=== PATIENT | female | born 1935 | race Caucasian/White ===

== ENCOUNTER 2016-06-26 11:20 | Inpatient (IN) | payer OTHER, MEDICARE ==
[~2016-06-26] VITALS: Ht 160 cm; Wt 65.4 kg
[~2016-06-26 11:20] MED LIST: ADVAIR 250/501 DISK IH; ADVIL200 MG PO; ALPRAZOLAM0.25 M2 PO; AMLODIPINE BESYL5 MG PO; ANORO ELLIPTA1 EACH IH; CALCIUM + D3 E1 EACH PO; CALCIUM 600 +1 EAC2 PO; CALCIUM 600 +1 EACH PO; CLARITIN,ALAVAR10 MG PO; Coumadin,Jantoven PO; DAILY VALUE1 EACH PO; DOXYCYCLINE HY100 MG PO; FOLIC ACID1 MG PO; FOSAMAX70 MG PO; HYDROCODON-ACE1 EAC7 PO; IBUPROFEN400 MG PO; IRON325 M1 PO; IRON325 MG PO; LO-DOSE ASPIRIN81 M1 PO; LORAZEPAM0.5 MG PO; MUCINEX600 MG PO; OCEAN NASAL 0.645 ML BOTH NARES; OMEPRAZOLE20 MG PO; OMNICEF300 MG PO; PLAVIX75 MG PO; PRAVACHOL80 MG PO; PRAVASTATIN SOD40 MG PO; PREDNISONE10 MG PO; PREDNISONE20 MG PO; PRESERVISION A1 EAC1 PO; PRESERVISION A1 EAC2 PO; PROAIR HFA8.5 GM IH; PROVENTIL2.5 MG/3 M IH; Pepcid PO; RELAFEN500 M1 PO; Senokot S,Pericolace PO; TESSALON PERLE100 MG PO; TOPROL XL25 MG PO; TUDORZA PRESS400 MCG IH; TYLENOL EXTRA500 MG PO; VENTOLIN HFA18 GM IH; VITAMIN B-12250 MCG PO; VITAMIN B-12500 MC5 SL; VITAMIN B12-FO1 EACH PO; VITAMIN D31000 UNI2 PO; Vicodin,Norco 5/325 PO; XOPENEX0.31 MG/3 IH; XOPENEX0.63 MG/3 IH
[2016-06-26 12:14] LABS: EOSINOPHIL (%) 0.8 % (0-5); EOSINOPHIL COUNT 0.1 K/uL (0-0.3); HEMATOCRIT 40.8 % (36.0-46.0); IMMATURE GRANULOCYTE (%) 0.3 % (0.0-0.7); IMMATURE GRANULOCYTE COUNT 0.3 K/uL; LYMPHOCYTE COUNT 0.3 K/uL (1.0-2.8); MCHC 32.1 G/DL (30.0-36.0); MCV 99.8 FL (83-99); MEAN PLAT.VOLUME 10.8 uM^3 (9.5-12.4); MONOCYTE (%) 6.7 % (3-12); MONOCYTE COUNT 0.7 K/uL (0-0.8); NEUTROPHIL (%) 89.2 % (45-76); NEUTROPHIL COUNT 9.5 K/uL (1.8-6.4); PLATELET COUNT 170 K/uL (156-360); RBC DIS.WIDTH-CV 12.5 % (11.8-14.6); RBC DIS.WIDTH-SD 44.4 % (39-53); RED BLOOD COUNT 4.09 M/uL (3.80-5.20); WHITE BLOOD COUNT 10.7 K/uL (4.1-10.2)
[2016-06-26 12:25] LABS: CHLORIDE 101 mEq/L (99-109); SODIUM 137 mEq/L (136-147)
[2016-06-26 12:27] LABS: GLUCOSE 182 mg/dL (70-99)
[2016-06-26 12:29] LABS: ANION GAP 9 MEQ/L (2-14); TOTAL BILIRUBIN 0.3 mg/dL (0.0-1.0)
[2016-06-26 12:31] LABS: ALKALINE PHOSPHATASE 60 IU/L (3-129); GFR ESTIMATE (CALCULATED) > 59 mL/min/
[2016-06-26 12:32] LABS: UREA NITROGEN (BUN) 11 mg/dL (9-23)
[2016-06-26 13:40] LABS: ADD MIUA? YES; BILIRUBIN NEGATIVE; BLOOD NEGATIVE; COLOR YELLOW ((YELLOW)); GLUCOSE (STRIP) NEGATIVE; KETONES NEGATIVE; LEUKOCYTES LARGE; NITRITE NEGATIVE; PROTEIN (STRIP) NEGATIVE; SPECIFIC GRAVITY 1.011 (1.000-1.030); UROBILINOGEN 0.2 MG/DL (0.2-1.0)
[2016-06-26 13:50] LABS: BACTERIA 1+ /HPF; EPITHELIAL CELLS RARE /HPF; MUCUS TRACE /LPF; RED BLOOD CELLS 0-5 /HPF (0-5); UCUL ADDED? NO
[2016-06-26] MEDS ORDERED: LITE COAT ASPI325 M1 PO (16:16)
[2016-06-26] MEDS ORDERED: FERGON324 MG PO (16:22)
[2016-06-26] MEDS ORDERED: MUCINEX600 MG PO (16:23)
[2016-06-26] MEDS ORDERED: PROBIOTIC1 EAC2 PO (16:25)
[2016-06-26 18:31] VITALS: BP 152/66
[2016-06-26 23:00] VITALS: BP 146/71
[2016-06-27 04:06] LABS: METH RESISTANT S AUREUS PCR NEGATIVE (NEGATIVE)
[2016-06-27 04:07] LABS: PROBE CHECK PASS; SPECIMEN PROCESSING CONTROL PASS
[2016-06-27 08:42] LABS: ANION GAP 9 MEQ/L (2-14); CHLORIDE 102 MEQ/L (99-109); GFR ESTIMATE (CALCULATED) > 59 mL/min/; GLUCOSE 152 mg/dL (70-99); POTASSIUM 4.3 MEQ/L (3.7-5.4); SAMPLE HEMOLYSIS CHECK 0; SAMPLE ICTERIC CHECK 0; SAMPLE LIPEMIA CHECK 0; SODIUM 141 MEQ/L (136-147); UREA NITROGEN (BUN) 8 mg/dL (9-23)
[2016-06-27 08:52] LABS: HEMATOCRIT 38.8 % (36.0-46.0); MCH 32.2 PG (29.0-34.0); MCV 100.8 FL (83-99); MEAN PLAT.VOLUME 10.9 uM^3 (9.5-12.4); PLATELET COUNT 177 K/uL (156-360); RBC DIS.WIDTH-CV 12.9 % (11.8-14.6); RBC DIS.WIDTH-SD 47.5 % (39-53); RED BLOOD COUNT 3.85 M/uL (3.80-5.20)
[2016-06-27 08:55] LABS: WHITE BLOOD COUNT 6.2 K/uL (4.1-10.2)
[2016-06-27 09:03] VITALS: BP 163/85
[2016-06-27 10:49] VITALS: BP 180/80
[2016-06-27 12:21] LABS: TROP-I INTERPRETATION NEGATIVE; TROPONIN-I < 0.01 ng/mL (0.0-0.30)
[2016-06-27 12:45] VITALS: BP 165/68
[2016-06-27 12:53] VITALS: BP 180/80
[2016-06-27 17:52] VITALS: BP 178/81
[2016-06-28 00:50] VITALS: BP 160/79
[2016-06-28 08:36] VITALS: BP 173/72
[2016-06-28 08:40] VITALS: BP 173/72
[2016-06-28 12:56] VITALS: BP 158/69
[2016-06-28 16:12] VITALS: BP 152/72
[2016-06-28 16:40] LABS: ANION GAP 7 MEQ/L (2-14); CHLORIDE 101 MEQ/L (99-109); GFR ESTIMATE (CALCULATED) > 59 mL/min/; GLUCOSE 133 mg/dL (70-99); POTASSIUM 4.7 MEQ/L (3.7-5.4); SAMPLE HEMOLYSIS CHECK 0; SAMPLE ICTERIC CHECK 0; SAMPLE LIPEMIA CHECK 0; SODIUM 139 MEQ/L (136-147); UREA NITROGEN (BUN) 10 mg/dL (9-23)
[2016-06-28 16:42] LABS: TROP-I INTERPRETATION NEGATIVE; TROPONIN-I 0.02 ng/mL (0.0-0.30)
[2016-06-28 19:50] VITALS: BP 178/75
[2016-06-29] VITALS (7 sets, daily range): BP systolic 142–180; BP diastolic 73–97
[2016-06-29 11:50] LABS: INFLUENZA A VIRAL ANTIGEN NEGATIVE; INFLUENZA B VIRAL ANTIGEN POSITIVE
[2016-06-29] MEDS ORDERED: CEFTIN500 MG PO (12:58)
[2016-06-29] MEDS ORDERED: PREDNISONE10 MG PO (12:59)
[2016-06-30 08:00] VITALS: BP 169/85
[2016-06-30] MEDS ORDERED: OSELTAMIVIR PHO30 MG PO (11:01)
== END 2016-06-30 13:15 | disposition home or self-care (01) | DRG 190 ==
LOC: EME 11:20 → EDOF 15:18 → 5EAST 15:18
PROVIDERS: Hospitalist; Internal Medicine; Nurse Practitioner Family
DX: J44.1 Chronic obstructive pulmonary disease with (acute) exacerbation (principal); J96.20 Acute and chronic respiratory failure, unspecified whether with hypoxia or hypercapnia; J11.1 Influenza due to unidentified influenza virus with other respiratory manifestations; Z99.81 Dependence on supplemental oxygen; I10 Essential (primary) hypertension; I25.10 Atherosclerotic heart disease of native coronary artery without angina pectoris; G25.81 Restless legs syndrome; L93.0 Discoid lupus erythematosus; H35.30 Unspecified macular degeneration; Z95.5 Presence of coronary angioplasty implant and graft; Z85.118 Personal history of other malignant neoplasm of bronchus and lung; Z79.01 Long term (current) use of anticoagulants
CPT/HCPCS: 71010; 80048; 80053; 81003; 83605; 84484; 85025; 85027; 87040; 87070; 87077; 87186; 87205; 87502; 87641; 93005; 94640; 94640 76; 94668; 94760; 94799; 99202; 99281; 99285; J0696; J1650; J2543; J2930; J7030; J7050; J7512

== ENCOUNTER 2016-11-24 12:05 | Emergency (ER) | payer OTHER, MEDICARE ==
[~2016-11-24] VITALS: Ht 160 cm; Wt 62.2 kg
[~2016-11-24 12:05] MED LIST changes: +CEFTIN500 MG PO; +FERGON324 MG PO; +LITE COAT ASPI325 M1 PO; +OSELTAMIVIR PHO30 MG PO; +PROBIOTIC1 EAC2 PO
[2016-11-24 13:32] LABS: HEMATOCRIT 40.3 % (36.0-46.0); MCH 31.5 PG (29.0-34.0); MCHC 32.5 G/DL (30.0-36.0); MCV 96.9 FL (83-99); MEAN PLAT.VOLUME 10.7 uM^3 (9.5-12.4); PLATELET COUNT 166 K/uL (156-360); RBC DIS.WIDTH-CV 11.6 % (11.8-14.6); RBC DIS.WIDTH-SD 41.2 % (39-53); RED BLOOD COUNT 4.16 M/uL (3.80-5.20); WHITE BLOOD COUNT 6.3 K/uL (4.1-10.2)
[2016-11-24 13:40] LABS: CHLORIDE 100 mEq/L (99-109); POTASSIUM 4.9 mEq/L (3.7-5.4); SODIUM 139 mEq/L (136-147)
[2016-11-24 13:42] LABS: GLUCOSE 99 mg/dL (70-99)
[2016-11-24 13:43] LABS: ANION GAP 8 MEQ/L (2-14)
[2016-11-24 13:46] LABS: GFR ESTIMATE (CALCULATED) > 59 mL/min/
[2016-11-24 13:47] LABS: UREA NITROGEN (BUN) 8 mg/dL (9-23)
[2016-11-24 14:47] LABS: ADD MIUA? YES; BILIRUBIN NEGATIVE; BLOOD NEGATIVE; COLOR YELLOW ((YELLOW)); GLUCOSE (STRIP) NEGATIVE; KETONES NEGATIVE; LEUKOCYTES MODERATE; NITRITE NEGATIVE; PROTEIN (STRIP) NEGATIVE; UROBILINOGEN 0.2 MG/DL (0.2-1.0)
[2016-11-24 15:19] LABS: BACTERIA RARE /HPF; EPITHELIAL CELLS RARE /HPF; HYALINE CASTS 0-5 /LPF; MUCUS NONE SEEN /LPF; RED BLOOD CELLS 0-5 /HPF (0-5); UCUL ADDED? NO; WHITE BLOOD CELLS 30-40 /HPF (0-5)
[2016-11-24] MEDS ORDERED: NORCO 5/3251 TABLET PO (15:56)
[2016-11-24 16:00] VITALS: BP 142/77
== END 2016-11-24 16:11 | disposition home or self-care (01) ==
LOC: EME 12:05
PROVIDERS: Physician Assistant
DX: M54.41 Lumbago with sciatica, right side (principal); I10 Essential (primary) hypertension; E78.5 Hyperlipidemia, unspecified; J44.9 Chronic obstructive pulmonary disease, unspecified; Z85.118 Personal history of other malignant neoplasm of bronchus and lung; Z79.82 Long term (current) use of aspirin; Z87.891 Personal history of nicotine dependence
CPT/HCPCS: 72131; 80048; 81003; 85027; 99281; 99285

== ENCOUNTER 2017-07-16 20:34 | Emergency (ER) | payer OTHER, MEDICARE ==
[~2017-07-16] VITALS: Ht 165.1 cm; Wt 55.5 kg
[~2017-07-16 20:34] MED LIST changes: +NORCO 5/3251 TABLET PO
[2017-07-16 21:04] LABS: HEMATOCRIT 41.2 % (36.0-46.0); HEMOGLOBIN 13.7 G/DL (11.9-15.5); MCH 32.9 PG (29.0-34.0); MCHC 33.3 G/DL (30.0-36.0); PLATELET COUNT 181 K/uL (156-360); RBC DIS.WIDTH-CV 13.7 % (11.8-14.6); RBC DIS.WIDTH-SD 49.3 % (39-53); RED BLOOD COUNT 4.16 M/uL (3.80-5.20); WHITE BLOOD COUNT 8.2 K/uL (4.1-10.2)
[2017-07-16 21:18] LABS: CHLORIDE 104 mEq/L (99-109); POTASSIUM 3.9 mEq/L (3.7-5.4); SODIUM 140 mEq/L (136-147)
[2017-07-16 21:20] LABS: GLUCOSE 120 mg/dL (70-99)
[2017-07-16 21:23] LABS: CREATININE 0.8 mg/dL (0.6-1.3); GFR ESTIMATE (CALCULATED) > 59 mL/min/
[2017-07-16 21:24] LABS: UREA NITROGEN (BUN) 12 mg/dL (9-23)
[2017-07-16 21:32] LABS: TROP-I INTERPRETATION NEGATIVE; TROPONIN-I < 0.01 ng/mL (0.0-0.30)
[2017-07-16] MEDS ORDERED: PREDNISONE10 MG PO (22:25)
[2017-07-16] MEDS ORDERED: PREDNISONE20 MG PO (22:49)
[2017-07-16 23:20] VITALS: BP 143/70
== END 2017-07-16 23:22 | disposition home or self-care (01) ==
LOC: EME → EDBD 20:34 → EME 20:34
DX: J44.1 Chronic obstructive pulmonary disease with (acute) exacerbation (principal); R09.02 Hypoxemia; I10 Essential (primary) hypertension; E78.5 Hyperlipidemia, unspecified; K21.9 Gastro-esophageal reflux disease without esophagitis; H35.30 Unspecified macular degeneration; Z99.81 Dependence on supplemental oxygen; Z87.891 Personal history of nicotine dependence; Z85.118 Personal history of other malignant neoplasm of bronchus and lung; Z79.82 Long term (current) use of aspirin; Z88.2 Allergy status to sulfonamides; Z88.1 Allergy status to other antibiotic agents; Z88.8 Allergy status to other drugs, medicaments and biological substances
CPT/HCPCS: 71045; 80048; 84484; 85027; 93005; 99281; 99284

== ENCOUNTER 2017-08-20 12:30 | Inpatient (IN) | payer OTHER, MEDICARE ==
[~2017-08-20] VITALS: Ht 160 cm; Wt 63.4 kg
[2017-08-20 13:03] LABS: BASOPHIL (%) 0.1 % (0-1); EOSINOPHIL (%) 3.5 % (0-5); EOSINOPHIL COUNT 0.3 K/uL (0-0.3); HEMATOCRIT 41.5 % (36.0-46.0); HEMOGLOBIN 13.6 G/DL (11.9-15.5); IMMATURE GRANULOCYTE (%) 0.4 % (0.0-0.7); LYMPHOCYTE (%) 11.3 % (15-42); LYMPHOCYTE COUNT 0.9 K/uL (1.0-2.8); MCH 32.7 PG (29.0-34.0); MCHC 32.8 G/DL (30.0-36.0); MCV 99.8 FL (83-99); MONOCYTE (%) 8.9 % (3-12); MONOCYTE COUNT 0.7 K/uL (0-0.8); NEUTROPHIL (%) 75.8 % (45-76); NEUTROPHIL COUNT 5.8 K/uL (1.8-6.4); PLATELET COUNT 177 K/uL (156-360); RBC DIS.WIDTH-CV 13.1 % (11.8-14.6); RBC DIS.WIDTH-SD 47.5 % (39-53); RED BLOOD COUNT 4.16 M/uL (3.80-5.20); WHITE BLOOD COUNT 7.6 K/uL (4.1-10.2)
[2017-08-20 13:22] LABS: CHLORIDE 100 mEq/L (99-109); POTASSIUM 4.2 mEq/L (3.7-5.4); SODIUM 137 mEq/L (136-147)
[2017-08-20 13:23] LABS: GLUCOSE 81 mg/dL (70-99)
[2017-08-20 13:27] LABS: CREATININE 0.8 mg/dL (0.6-1.3); GFR ESTIMATE (CALCULATED) > 59 mL/min/
[2017-08-20 13:28] LABS: UREA NITROGEN (BUN) 10 mg/dL (9-23)
[2017-08-20 13:30] LABS: TROP-I INTERPRETATION NEGATIVE; TROPONIN-I < 0.01 ng/mL (0.0-0.30)
[2017-08-20] MEDS ORDERED: FERROUS GLUCON324 MG PO (14:39)
[2017-08-20] MEDS ORDERED: ADVIL,NUPRIN,M200 MG PO (14:40)
[2017-08-20] MEDS ORDERED: FLUTICASONE PRO16 GM BOTH NARES (14:40)
[2017-08-20] MEDS ORDERED: VITAMIN D31000 UNIT PO (14:41)
[2017-08-20] MEDS ORDERED: CLARITIN,ALAVAR10 MG PO (14:41)
[2017-08-20] MEDS ORDERED: REFRESH TEARS15 ML BOTH EYES (14:41)
[2017-08-20 21:04] VITALS: BP 125/89
[2017-08-20 23:50] VITALS: BP 138/66
[2017-08-21 03:30] VITALS: BP 139/70
[2017-08-21 06:09] LABS: HEMATOCRIT 39.3 % (36.0-46.0); HEMOGLOBIN 12.7 G/DL (11.9-15.5); MCH 31.6 PG (29.0-34.0); MCHC 32.3 G/DL (30.0-36.0); MCV 97.8 FL (83-99); PLATELET COUNT 174 K/uL (156-360); RBC DIS.WIDTH-CV 12.7 % (11.8-14.6); RBC DIS.WIDTH-SD 44.9 % (39-53); RED BLOOD COUNT 4.02 M/uL (3.80-5.20); WHITE BLOOD COUNT 6.4 K/uL (4.1-10.2)
[2017-08-21 06:38] LABS: ALKALINE PHOSPHATASE 51 IU/L (3-129); ALT (GPT) 10 IU/L (3-49); AST (GOT) 14 IU/L (2-34); CHLORIDE 99 MEQ/L (99-109); CREATININE 0.7 MG/DL (0.6-1.3); DIRECT BILIRUBIN 0.1 mg/dL (0.0-0.3); GFR ESTIMATE (CALCULATED) > 59 mL/min/; POTASSIUM 4.3 MEQ/L (3.7-5.4); SODIUM 139 MEQ/L (136-147); TOTAL BILIRUBIN 0.4 MG/DL (0.0-1.0); TOTAL PROTEIN 6.1 G/DL (6.4-8.3); UREA NITROGEN (BUN) 11 mg/dL (9-23)
[2017-08-21 06:46] LABS: GLUCOSE 163 mg/dL (70-99)
[2017-08-21 07:33] VITALS: BP 152/81
[2017-08-21 11:16] VITALS: BP 141/70
[2017-08-21 16:25] VITALS: BP 143/71
[2017-08-22 00:10] VITALS: BP 131/72
[2017-08-22 06:30] LABS: BASOPHIL (%) 0.1 % (0-1); EOSINOPHIL (%) 0.1 % (0-5); HEMATOCRIT 39.3 % (36.0-46.0); HEMOGLOBIN 12.8 G/DL (11.9-15.5); IMMATURE GRANULOCYTE (%) 0.8 % (0.0-0.7); LYMPHOCYTE (%) 2.7 % (15-42); LYMPHOCYTE COUNT 0.4 K/uL (1.0-2.8); MCH 32.2 PG (29.0-34.0); MCHC 32.6 G/DL (30.0-36.0); MCV 98.7 FL (83-99); MONOCYTE (%) 2.3 % (3-12); MONOCYTE COUNT 0.4 K/uL (0-0.8); NEUTROPHIL COUNT 14.5 K/uL (1.8-6.4); PLATELET COUNT 186 K/uL (156-360); RED BLOOD COUNT 3.98 M/uL (3.80-5.20); WHITE BLOOD COUNT 15.4 K/uL (4.1-10.2)
[2017-08-22 07:01] LABS: CHLORIDE 99 MEQ/L (99-109); CREATININE 0.6 MG/DL (0.6-1.3); GFR ESTIMATE (CALCULATED) > 59 mL/min/; GLUCOSE 146 mg/dL (70-99); SODIUM 140 MEQ/L (136-147); UREA NITROGEN (BUN) 13 mg/dL (9-23)
[2017-08-22 07:25] VITALS: BP 156/72
[2017-08-22 16:46] VITALS: BP 142/65
[2017-08-22 23:49] VITALS: BP 135/68
[2017-08-23 07:01] VITALS: BP 121/58
[2017-08-23] MEDS ORDERED: MEDROL DOSEPAK4 MG PO (08:01)
[2017-08-23] MEDS ORDERED: DOXYCYCLINE HY100 MG PO (10:29)
[2017-08-23] MEDS ORDERED: LASIX20 MG PO (10:40)
== END 2017-08-23 14:34 | disposition home or self-care (01) | DRG 191 ==
LOC: EME 12:30 → 2EAST 14:33 → EDOF 14:33 → ENRESERV 14:46 → 2EAST 20:43 → ENPENDDIS 08-23 → 2EAST 08-23 14:34
PROVIDERS: Emergency Medicine; Internal Medicine; Student in an Organized Health Care Education/Training Program
DX: J44.1 Chronic obstructive pulmonary disease with (acute) exacerbation (principal); J44.0 Chronic obstructive pulmonary disease with (acute) lower respiratory infection; J20.9 Acute bronchitis, unspecified; J96.11 Chronic respiratory failure with hypoxia; R60.0 Localized edema; E78.5 Hyperlipidemia, unspecified; H35.30 Unspecified macular degeneration; I10 Essential (primary) hypertension; I25.10 Atherosclerotic heart disease of native coronary artery without angina pectoris; D50.9 Iron deficiency anemia, unspecified; K21.9 Gastro-esophageal reflux disease without esophagitis; Z85.118 Personal history of other malignant neoplasm of bronchus and lung; Z87.891 Personal history of nicotine dependence; Z95.5 Presence of coronary angioplasty implant and graft; Z99.81 Dependence on supplemental oxygen; Z79.82 Long term (current) use of aspirin; Z88.2 Allergy status to sulfonamides
CPT/HCPCS: 71045; 80048; 80076; 83880; 84484; 85025; 85027; 93005; 93306; 94010; 94640; 94640 76; 94667; 94668; 94760; 94799; 99202; 99281; 99285; J1650; J1940; J2920; J2930